=== PATIENT | female | born 1955 | race African-American/Black ===

== ENCOUNTER → 2020-03-15 | Outpatient (CLI) | payer MEDICARE ==
[~2020-03-15] MED LIST: ALBU8.5H INH; ATOR1TAB21; BUPR150T3; ECHI80CA PO; EXCETAB33 PO; FISH306C PO; FLUT1BLS5 INH; HYDR25TAB PO; MONT10TA4 PO; MULTCAP PO; POTA10CA32 INH; SERT50TA29; SM F PO; TGTCAP PO; TRAZ300T2 PO; VALA1TAB5 PO; VITA500C24 PO; VITAD1000T PO
== END ==
LOC: M LABSMTC 10:44 → EDUNIT# 10:50
PROVIDERS: ATTEND Anesthesiology
DX: Z11.59 Encounter for screening for other viral diseases (principal)
CPT/HCPCS: C9803; U0003

== ENCOUNTER 2020-03-18 08:48 | Day surgery (SDC) | payer MEDICARE ==
[~2020-03-18] VITALS: Ht 175.3 cm; Wt 66.0 kg
[~2020-03-18 08:48] MED LIST changes: +BALANCED SALT IRRIGATION SOLUTION 500ML BAG (FOR OR EYE MACHINE) As Ordered ONE; +CYCLOPENTOLATE 2% OPHTH SOLN 2ML BTL OD ONE; +HEALON DUET PRO(HEALON 10MG/ML 0.55ML & HEALON ENDOCOAT 30MG/ML 0.85ML) As Ordered ONE; +LIDOCAINE 1% MDV 20ML VIAL SQ PRN; +LIDOCAINE 1% SDV 5ML VIAL As Ordered ONE; +LIDOCAINE 3.5 % 1ML OPHTH TOPICAL GEL OU ONE; +MIDAZOLAM INJ 2MG/2ML VIAL (J2250 PER 1MG) As Ordered ONE; +OFLOXACIN 0.3 % (OCUFLOX) OPTH SOL 5ML OD ONE; +PHENYLEPHRINE 2.5% OPHTH SOL 2ML OD ONE; +PHENYLEPHRINE HCL 10 % OPHTH. SOL 5ML OD PRN; +POVIDONE-IODINE 5% OPHTH PREP SOL 30ML As Ordered ONE; +TROPICAMIDE 1% OPHTH SOLN 2ML OD ONE; +fentaNYL 250 MCG/5 ML INJECTION (J3010) As Ordered ONE
[2020-03-18] MEDS ORDERED: HEALON DUET PRO(HEALON 10MG/ML 0.55ML & HEALON ENDOCOAT 30MG/ML 0.85ML) As Ordered ONE (10:28)
[2020-03-18] MEDS ORDERED: MIDAZOLAM INJ 2MG/2ML VIAL (J2250 PER 1MG) As Ordered ONE (10:31)
[2020-03-18] MEDS ORDERED: fentaNYL 100 MCG/2 ML INJECTION (J3010) As Ordered ONE (10:31)
[2020-03-18 11:10] VITALS: BP 130/78
--- NOTE | 2020-03-20 06:54 | RO ---
DATE OF PROCEDURE: 03/18/2020 PREOPERATIVE DIAGNOSIS: Wrong power intraocular lens (IOL) right eye. POSTOPERATIVE DIAGNOSIS: Wrong power intraocular lens right eye. PROCEDURE PERFORMED: Intraocular lens exchange and Optiwave Refractive Analysis right eye. Lens placed is a [id number], 21.0 diopters. SURGEON: Ольга Bautista MD PRODUCT MARKETING SPECIALIST: ANESTHESIA: Topical with sedation. DESCRIPTION OF PROCEDURE: Patient was prepped and draped in usual fashion. Lid speculum was placed between the lids. Stab incision was made into the anterior chamber. 1% nonpreserved lidocaine was instilled, and viscoelastic was instilled. The main incision was reopened easily, and the lens was manipulated so the haptics came out of the capsular bag. The lens was cut in half and extracted from the eye through the incision with no difficulty. The eye was refilled with viscoelastic, and Optiwave Refractive Analysis (ORA) was done and a lens of 21.0 diopters was the power the ORA revealed. The lens was placed into the capsular bag with no difficulty. Any remaining viscoelastic was removed with the irrigation and aspiration (I and A). The wound was hydrated, and ReSure glue was used to seal the wound. The eye was reinflated with balanced salt solution (BSS) and was watertight. Patient tolerated the procedure well and went to recovery room in stable condition.
== END 2020-03-18 11:15 | disposition home or self-care (01) ==
LOC: M SDC 08:48
PROVIDERS: ATTEND Ophthalmology
DX: T85.29XA Other mechanical complication of intraocular lens, initial encounter (principal); I10 Essential (primary) hypertension; F32.9 Major depressive disorder, single episode, unspecified; G47.30 Sleep apnea, unspecified; F41.9 Anxiety disorder, unspecified; Z79.899 Other long term (current) drug therapy; Z88.0 Allergy status to penicillin; Z88.5 Allergy status to narcotic agent
CPT/HCPCS: 66986; J2250; J3010; V2788

== ENCOUNTER → 2020-04-12 | Outpatient (CLI) | payer MEDICARE ==
[~2020-04-12] MED LIST changes: -BALANCED SALT IRRIGATION SOLUTION 500ML BAG (FOR OR EYE MACHINE) As Ordered ONE; -CYCLOPENTOLATE 2% OPHTH SOLN 2ML BTL OD ONE; +D31000TA2 PO; -HEALON DUET PRO(HEALON 10MG/ML 0.55ML & HEALON ENDOCOAT 30MG/ML 0.85ML) As Ordered ONE; -LIDOCAINE 1% MDV 20ML VIAL SQ PRN; -LIDOCAINE 1% SDV 5ML VIAL As Ordered ONE; -LIDOCAINE 3.5 % 1ML OPHTH TOPICAL GEL OU ONE; -MIDAZOLAM INJ 2MG/2ML VIAL (J2250 PER 1MG) As Ordered ONE; -OFLOXACIN 0.3 % (OCUFLOX) OPTH SOL 5ML OD ONE; -PHENYLEPHRINE 2.5% OPHTH SOL 2ML OD ONE; -PHENYLEPHRINE HCL 10 % OPHTH. SOL 5ML OD PRN; -POTA10CA32 INH; +POTA10CA32 PO; -POVIDONE-IODINE 5% OPHTH PREP SOL 30ML As Ordered ONE; -TROPICAMIDE 1% OPHTH SOLN 2ML OD ONE; -VITAD1000T PO; -fentaNYL 250 MCG/5 ML INJECTION (J3010) As Ordered ONE
== END ==
LOC: M LABSMTC 10:34
PROVIDERS: ATTEND Anesthesiology
DX: Z01.818 Encounter for other preprocedural examination (principal); Z11.59 Encounter for screening for other viral diseases
CPT/HCPCS: C9803; U0003

== ENCOUNTER 2020-04-15 09:05 | Day surgery (SDC) | payer MEDICARE ==
[~2020-04-15] VITALS: Ht 175.3 cm; Wt 64.4 kg
[~2020-04-15 09:05] MED LIST changes: +ACETAMINOPHEN 325 MG TAB PO PRN; +BALANCED SALT IRRIGATION SOLUTION 500ML BAG (FOR OR EYE MACHINE) As Ordered ONE; +CEFUROXIME 1MG/0.1ML INTRACAMERAL INJ As Ordered ONE; +CYCLOPENTOLATE 2% OPHTH SOLN 2ML BTL OS ONE; -D31000TA2 PO; +HEALON DUET PRO(HEALON 10MG/ML 0.55ML & HEALON ENDOCOAT 30MG/ML 0.85ML) As Ordered ONE; +LIDOCAINE 1% SDV 5ML VIAL As Ordered ONE; +LIDOCAINE 3.5 % 1ML OPHTH TOPICAL GEL OU ONE; +OFLOXACIN 0.3 % (OCUFLOX) OPTH SOL 5ML OS ONE; +PHENYLEPHRINE 2.5% OPHTH SOL 2ML OS ONE; +PHENYLEPHRINE HCL 10 % OPHTH. SOL 5ML OS PRN; +POVIDONE-IODINE 5% OPHTH PREP SOL 30ML As Ordered ONE; +PROPARACAINE 0.5% OPHTH SOL 15ML OS PRN; +TROPICAMIDE 1% OPHTH SOLN 2ML OS ONE; +VITAD1000T PO
[2020-04-15] MEDS ORDERED: fentaNYL 100 MCG/2 ML INJECTION (J3010) As Ordered ONE (10:22)
[2020-04-15] MEDS ORDERED: MIDAZOLAM INJ 2MG/2ML VIAL (J2250 PER 1MG) As Ordered ONE (10:22)
[2020-04-15] MEDS ORDERED: LIDOCAINE 1% SDV 5ML VIAL As Ordered ONE (10:41)
[2020-04-15] MEDS ORDERED: POVIDONE-IODINE 5% OPHTH PREP SOL 30ML As Ordered ONE (10:41)
[2020-04-15] MEDS ORDERED: BALANCED SALT IRRIGATION SOLUTION 500ML BAG (FOR OR EYE MACHINE) As Ordered ONE (10:41)
[2020-04-15] MEDS ORDERED: CEFUROXIME 1MG/0.1ML INTRACAMERAL INJ As Ordered ONE (10:42)
[2020-04-15] MEDS ORDERED: HEALON DUET PRO(HEALON 10MG/ML 0.55ML & HEALON ENDOCOAT 30MG/ML 0.85ML) As Ordered ONE (10:42)
[2020-04-15] MEDS ORDERED: ACETYLCHOLINE OPHTH SOLN 1% 2ML (MIOCHOL-E) As Ordered ONE (11:38)
[2020-04-15 11:49] VITALS: BP 179/77
[2020-04-15] MEDS ORDERED: TRIMETHOBENZAMIDE 300 MG CAP PO PRN (12:00)
[2020-04-15] MEDS ORDERED: AcetaZOLAMIDE 500 MG ER CAP PO ONE (12:00)
[2020-04-15] MEDS ORDERED: KETOROLAC 0.5% OPHTH SOLN OS ONE (12:00)
--- NOTE | 2020-04-23 10:49 | RO ---
DATE OF PROCEDURE: 04/15/2020 PREOPERATIVE DIAGNOSIS: Wrong power intraocular lens (IOL), left eye. POSTOPERATIVE DIAGNOSIS: Wrong power intraocular lens, left eye. PROCEDURE PERFORMED: Intraocular lens exchange, left eye. ANESTHESIA: Topical with sedation. LENS USED: [id number] 19.0 diopters, and optiwave refractive analysis was used. SURGEON: Ольга Bautista MD ALUMINUM WELDER: DESCRIPTION OF PROCEDURE: The patient was prepped and draped in the usual fashion. Lid speculum was placed between the lids. The eye was fixated. Stab incision made to the anterior chamber. 1% nonpreserved lidocaine was instilled; then viscoelastic was instilled. The eye was refixated, and a 2.5 mm keratome was used to make a clear corneal temporal limbal incision. The incision was enlarged to approximately 3 mm. The micro forceps was placed through the sideport incision after the lens was removed from the capsular bag into the anterior chamber. It was very difficult. The superior object was actually quite adherent but finally came free without damaging . The lens was then again fixated and the scissors used to cut the lens into two pieces. The pieces were removed through the incision. During the removal of the last piece, the iris exteriorized. The iris was reposited. The was done, and the lens was placed into the nail feeder and injected into the posterior capsule. Miochol was instilled to bring down the pupil a bit, making sure the iris is not in the wound. One 10-0 nylon suture was placed after the viscoelastic was removed. Balanced salt solution was used to reform the eye for a little bit. The wound was watertight, and there was no exteriorized iris. The patient tolerated the procedure well and went to the recovery room in stable condition.
== END 2020-04-15 12:25 | disposition home or self-care (01) ==
LOC: M SDC 09:05
PROVIDERS: ATTEND Ophthalmology
DX: H25.12 Age-related nuclear cataract, left eye (principal); I10 Essential (primary) hypertension; E78.5 Hyperlipidemia, unspecified; F32.9 Major depressive disorder, single episode, unspecified; G47.30 Sleep apnea, unspecified; Z79.899 Other long term (current) drug therapy; Z88.5 Allergy status to narcotic agent; Z88.0 Allergy status to penicillin
CPT/HCPCS: 66986; 92015; J2250; J3010; V2788